=== PATIENT | male | born 1960 | race Caucasian/White ===

== ENCOUNTER 2023-03-23 18:02 | Emergency (ER) | payer OTHER ==
[~2023-03-23] VITALS: Ht 182.9 cm; Wt 81.7 kg
[2023-03-23 18:23] VITALS: BP 127/73
[2023-03-23] MEDS ORDERED: CEPH500 PO (19:37)
== END 2023-03-23 20:00 | disposition home or self-care (01) ==
LOC: ER 18:02
DX: S51.811A Laceration without foreign body of right forearm, initial encounter (principal); W26.8XXA Contact with other sharp object(s), not elsewhere classified, initial encounter; I10 Essential (primary) hypertension; Z23 Encounter for immunization; Z79.899 Other long term (current) drug therapy
CPT/HCPCS: 90714